=== PATIENT | male | born 1960 ===

== ENCOUNTER → 2020-06-21 | Day surgery (SDC) | payer OTHER ==
[~2020-06-21] MED LIST: APIX5TAB3 PO; BUPIVACAINE-EPI 0.25%-1:200000 MPF 30 ML VIAL. INJ ONE; BUPIVACAINE-EPI 0.25%-1:200000 MPF 30 ML VIAL. ONE; SIMV40TA PO; TELM1TAB3 PO
--- NOTE | 2020-06-21 09:52 | PDOC4 ---
Operative Report DATE June [id number] at 949 Preop Diagnosis Scalp mass Post-op Diagnosis Same Operation Performed Excision of scalp mass Patient is a 59-year-old gentleman with complaints of enlarging scalp mass on the posterior scalp left side. Procedure of excision was explained to the patient detail was benefits were also discussed including bleeding infection alternatives to this procedure also discussed. Patient seemed understand gave a verbal written consent to have the procedure performed. Patient was taken to the operating room placed in the prone positioning hair over the mass on the scalp was shaved and then the area prepped with Betadine solution. Cord percent Marcaine with epinephrine was used to inject over the mass once it was anesthetized 15 blade scalpel was used to incise the skin this carried down through subcutaneous tissue using Metzenbaum scissors for sharp dissection electrocautery was used for control of bleeding the mass was excised sharply and removed and sent for pathology the size of the mass was 4 cm. In size of the incision was 5 cm. Wound was closed in a single layer 4-0 subcuticular Monocryl Dermabond was used to seal the incision. Patient was discharged home in stable condition all sponge instrument needle counts listed as correct estimated blood loss 5 mL Surgeon Humberto ANESTHESIA PROPOSED: LOCAL Blood Loss 5 mL Specimen Scalp mass Complications None GLENNA GOLDBERG MD Jun 21, 2020 09:52
--- NOTE | 2020-06-21 09:53 | DISCH ---
DISCHARGE INSTRUCTIONS-DC Condition on Discharge Condition on Discharge: Stable Activity after Discharge Activity Instructions for Disc: No restrictions Diet after Discharge Diet after Discharge: Regular Contacting the DR. after DC Call your doctor for: If your condition worsens Follow-Up Follow up with: Dr. Goldberg 2 weeks GLENNA GOLDBERG MD Jun 21, 2020 09:53
[2020-06-21 09:54] VITALS: BP 127/78
--- NOTE | 2020-06-23 18:31 | PATHOLOGY ---
[facility] Accession Number: [id number] . 01 Material submitted: . scalp - SCALP MASS. Modifiers: left, posterior . 01 Clinical history: . EXCISION OF LEFT POSTERIOR SCALP LIPOMA . 02 Diagnosis: Fibrous tissue, left posterior scalp mass excision: - Pilar cyst. (JPM:razor grinder; 06/23/2020) R 06/23/2020 1559 Local . 02 Comment: There is no evidence of malignancy. (JPM:sandip; 06/23/2020) . 02 Electronically signed: . Hudson Trevino MD, Pathologist NPI- [id number] . 01 Gross description: . The specimen is received in formalin, labeled "Dariusz Alcocer, scalp mass". Received is a segment of pale goodwin, indurated cystic tissue measuring 3.4 x 3.4 x 2.6 cm in greatest dimensions. Sectioning reveals a unilocular cystic structure measuring 3.0 cm filled with light goodwin, friable to waxy material. The specimen is submitted representatively in cassette A1. ([facility]; 06/22/2020) QA/[facility] 06/23/2020 1559 Local . 02 Pathologist provided ICD-10: L72.11 . 02 CPT . 250951 Specimen Comment: A courtesy copy of this report has been sent to [phone], [phone] Specimen Comment: [id number] Specimen Comment: Report sent to / DR RAMOS Performed at: 01 [facility] [address], [place] [id number] MD Gutierrez Patrick MD Phone: [phone] Performed at: [address] [facility] [address] [place], [place] [id number] MD Hudson Trevino MD Phone: [phone]
== END | disposition home or self-care (01) ==
LOC: SURG 08:48
PROVIDERS: ATTEND Surgery
DX: R22.0 Localized swelling, mass and lump, head (principal); L72.11 Pilar cyst; I10 Essential (primary) hypertension; E78.5 Hyperlipidemia, unspecified; Z87.01 Personal history of pneumonia (recurrent); Z87.891 Personal history of nicotine dependence; Z79.899 Other long term (current) drug therapy; Z79.82 Long term (current) use of aspirin
CPT/HCPCS: 11424; 88305; J3490